=== PATIENT | male | born 1930 | race Caucasian/White ===

== ENCOUNTER 2018-07-16 13:04 | Emergency (ER) | payer OTHER ==
[2018-07-16 15:33] LABS: Absolute Lymphocytes (CBC) 2.2 K/uL (0.7-4.9); Absolute Neutrophil 5.8 K/uL (1.8-8.0); Basophils % 1.3 % (0-1.3); Eosinophils % 0.7 % (0-4.4); Hematocrit 40.8 % (39.6-49.0); Lymphocytes % 23.5 % (15.3-44.8); MPV 9.3 fL (7.6-11.3); Monocytes % 10.8 % (3.3-12.3); RBC Red Blood Cell Count 4.08 M/uL (4.33-5.43)
[2018-07-16 15:40] LABS: Protime INR 1.04
[2018-07-16 15:49] LABS: Potassium 3.5 mmol/L (3.5-5.1)
[2018-07-16] MEDS ORDERED: CEFTRIAXONE/SWI 1gm 1 GM/10 ML SYR ONE (16:38)
--- NOTE | 2018-07-16 16:43 | ER ---
Nurse's Notes [facility] Name: Ganesh Santoyo Age: 87 yrs Sex: Male : 1930 Arrival Date: 07/16/2018 Time: 13:06 Bed 25 Private MD: Yvette Plascencia C Diagnosis: Hematuria, unspecified;Urinary tract infection, site not specified Presentation: 07/16 13:28 Presenting complaint: Sent by Dr. Plascencia for blood in urine. Transition of care: patient hb was not received from another setting of care. Onset of symptoms was July 16, 2018. Risk Assessment: Do you want to hurt yourself or someone else? Patient reports no desire to harm self or others. Care prior to arrival: None. 13:28 Method Of Arrival: Ambulatory hb 13:28 Acuity: SHANIA 3 hb 13:40 Initial Sepsis Screen: Does the patient meet any 2 criteria? No. Patient's initial ca1 sepsis screen is negative. Does the patient have a suspected source of infection? No. Patient's initial sepsis screen is negative. Historical: - Allergies: 13:31 No Known Allergies; hb - PMHx: 13:31 Hyperlipidemia; Hypothyroidism; hb - PSHx: 13:31 None; hb - Immunization history:: Adult Immunizations up to date. - Social history:: Smoking status: Patient/guardian denies using tobacco. - Ebola Screening: : No symptoms or risks identified at this time. - Family history:: not pertinent. - Hospitalizations: : No recent hospitalization is reported. Screenin:50 Abuse screen: Denies threats or abuse. Denies injuries from another. ca1 14:50 Nutritional screening: No deficits noted. Tuberculosis screening: No symptoms or risk ca1 factors identified. Fall Risk IV access (20 points). Ambulatory Aid- Crutches/Cane/Walker (15 pts). Assessment: 13:40 General: Appears in no apparent distress. comfortable, Behavior is calm, cooperative, ca1 appropriate for age. Pain: Denies pain. Neuro: Level of Consciousness is awake, alert, obeys commands, Oriented to person, place, situation. Cardiovascular: Heart tones S1 S2 present Capillary refill < 3 seconds Patient's skin is warm and dry. Respiratory: Airway is patent Trachea midline Respiratory effort is even, unlabored, Respiratory pattern is regular, symmetrical, Breath sounds are clear bilaterally. GI: Abdomen is flat, non-distended, Bowel sounds present X 4 quads. Abd is soft and non tender X 4 quads. : Parent/caregiver report the patient having blood in urine, with tiny clots. EENT: No signs and/or symptoms were reported regarding the EENT system. Derm: Skin is intact, Skin is pink, warm \T\ dry. Musculoskeletal: Circulation, motion, and sensation intact. 14:30 Reassessment: Patient appears in no apparent distress at this time. Patient and/or ca1 family updated on plan of care and expected duration. Pain level reassessed. Patient is alert, oriented x 3, equal unlabored respirations, skin warm/dry/pink. 15:35 Reassessment: Dr. Valdez at bedside. ca1 15:40 Reassessment: Patient appears in no apparent distress at this time. Attempted to insert ca1 3-way Mensah to pt with Dr. Valdez at bedside. Encountered resistance, half way through the catheter. Dr. Valdez, took over and tried to push forward but says there is a restriction and pulled out the catheter. Instructed and pt to see him next week at his clinic, and says they will be discharged. 16:24 Reassessment: Scanned bladder, 134ml, Dr. Sutherland informed. ca1 16:55 Reassessment: Patient appears in no apparent distress at this time. Patient is alert, ca1 oriented x 3, equal unlabored respirations, skin warm/dry/pink. Vital Signs: 13:30 BP 154 / 92; Pulse 87; Resp 18; Temp 97.2; Pulse Ox 97% on R/A; Pain 0/10; hb 14:50 BP 151 / 85; Pulse 82; Resp 18; Pulse Ox 100% on R/A; ca1 15:40 BP 125 / 63; Pulse 83; Resp 18; Pulse Ox 100% on R/A; ca1 16:49 BP 131 / 67; Pulse 81; Resp 18; Pulse Ox 100% on R/A; ca1 ED Course: 13:06 Patient arrived in ED. ag5 13:06 Yvette Plascencia MD is Private Physician. ag5 13:30 Triage completed. hb 13:30 Arm band placed on. hb 13:40 Patient has correct armband on for positive identification. Placed in gown. Bed in low ca1 position. Call light in reach. Side rails up X2. 13:40 Pulse ox on. NIBP on. Warm blanket given. ca1 14:43 Ag Sutherland MD is Attending Physician. rn 14:43 Kusum Linares RN is Primary Nurse. ca1 15:25 Missed attempt(s): 20 gauge in right in left antecubital area. lt1 15:26 Inserted saline lock: 20 gauge in right antecubital area, using aseptic technique. lt1 15:26 Initial lab(s) drawn, by me, sent to lab. lt1 16:41 Barry Valdez MD is Referral Physician. rn 17:10 No provider procedures requiring assistance completed. IV discontinued, intact, ca1 bleeding controlled, No redness/swelling at site. Pressure dressing applied. Administered Medications: 16:25 Drug: Rocephin - (cefTRIAXone) 1 grams Route: IVPB; Infused Over: 30 mins; Site: right ca1 antecubital; 16:48 Follow up: Response: No adverse reaction; IVP per Pharmacy Protocol ca1 Intake: Outcome: 16:42 Discharge ordered by MD. rn 17:10 Discharged to home ambulatory, with significant other. ca1 17:10 Condition: stable 17:10 Discharge instructions given to patient, significant other, Instructed on discharge instructions, follow up and referral plans. medication usage, Demonstrated understanding of instructions, follow-up care, medications, Prescriptions given X 1. 17:15 Patient left the ED. ca1 Signatures: Ag Sutherland MD MD rn Baxter, Heather, RN RN Kusum Linares RN RN ca1 Mikala, Venkata ag5 Alcantara, Lea lt1 Corrections: (The following items were deleted from the chart) 16:01 14:50 General: Appears in no apparent distress. comfortable, Behavior is calm, ca1 cooperative, appropriate for age, ca1 16:01 14:50 Pain: Denies pain. ca1 ca1 16:01 14:50 Pain: ca1 ca1 16:01 14:50 Neuro: Level of Consciousness is awake, alert, obeys commands, Oriented to ca1 person, place, situation, ca1 16:01 14:50 Cardiovascular: Heart tones S1 S2 present Capillary refill < 3 seconds Patient's ca1 skin is warm and dry. ca1 16:01 14:50 Respiratory: Airway is patent Trachea midline Respiratory effort is even, ca1 unlabored, Respiratory pattern is regular, symmetrical, Breath sounds are clear bilaterally. ca1 16: 14:50 GI: Abdomen is flat, non-distended, Bowel sounds present X 4 quads. Abd is soft ca1 and non tender X 4 quads. ca1 16:01 14:50 : Parent/caregiver report the patient having blood in urine, with tiny clots. ca1 ca1 16:01 14:50 EENT: No signs and/or symptoms were reported regarding the EENT system. ca1 ca1 16:01 14:50 Derm: Skin is intact, Skin is pink, warm \T\ dry. ca1 ca1 16:01 14:50 Musculoskeletal: Circulation, motion, and sensation intact. ca1 ca1 02 01:00 02/13 17:10 Discharge instructions given to patient, significant other, Instructed on ca1 discharge instructions, follow up and referral plans. Demonstrated understanding of instructions, follow-up care, medications, ca1
--- NOTE | 2018-07-16 16:43 | EDPHYS ---
Physician Documentation [facility] Name: Ganesh Santoyo Age: 87 yrs Sex: Male : 1930 Arrival Date: 07/16/2018 Time: 13:06 Bed 25 Private MD: Yvette Plascencia C ED Physician Ag Sutherland HPI: 07/16 15:34 This 87 yrs old Male presents to ER via Ambulatory with complaints of blood rn in urine. 15:34 The patient presents with urinary symptoms, urinary frequency, hematuria. Onset: The rn symptoms/episode began/occurred 2 week(s) ago. Modifying factors: The symptoms are alleviated by nothing, the symptoms are aggravated by urinating. Severity of symptoms: At their worst the symptoms were mild, in the emergency department the symptoms are unchanged. The patient has not experienced similar symptoms in the past. Reports sent by Dr. Plascencia for evaluation, reports hematuria for 2 weeks, had ct scan that showed renal pelvis stone on right side, told to come here to see Dr. Valdez. Able to urinate and no pain.. Historical: - Allergies: 13:31 No Known Allergies; hb - PMHx: 13:31 Hyperlipidemia; Hypothyroidism; hb - PSHx: 13:31 None; hb - Immunization history:: Adult Immunizations up to date. - Social history:: Smoking status: Patient/guardian denies using tobacco. - Ebola Screening: : No symptoms or risks identified at this time. - Family history:: not pertinent. - Hospitalizations: : No recent hospitalization is reported. ROS: 15:34 Constitutional: Negative for fever, chills, and weight loss, Eyes: Negative for injury, rn pain, redness, and discharge, Cardiovascular: Negative for chest pain, palpitations, and edema, Respiratory: Negative for shortness of breath, cough, wheezing, and pleuritic chest pain, Abdomen/GI: Negative for abdominal pain, nausea, vomiting, diarrhea, and constipation, Back: Negative for injury and pain, : + hematuria MS/Extremity: Negative for injury and deformity, Skin: Negative for injury, rash, and discoloration, Neuro: Negative for headache, weakness, numbness, tingling, and seizure. Exam: 15:34 Constitutional: This is a well developed, well nourished patient who is awake, alert, rn and in no acute distress. Head/Face: Normocephalic, atraumatic. Cardiovascular: Regular rate and rhythm, No pulse deficits. Respiratory: Lungs have equal breath sounds bilaterally, clear to auscultation, No increased work of breathing, no retractions or nasal flaring. Abdomen/GI: soft, non-tender Skin: Warm, dry with normal turgor. Normal color with no rashes, no lesions, and no evidence of cellulitis. MS/ Extremity: Pulses equal, no cyanosis. Neurovascular intact. Full, normal range of motion. Equal circumference. Neuro: Awake and alert, GCS 15, oriented to person, place, time, and situation. Cranial nerves II-XII grossly intact. Motor strength 5/5 in all extremities. Sensory grossly intact. Shuffling gait. Vital Signs: 13:30 BP 154 / 92; Pulse 87; Resp 18; Temp 97.2; Pulse Ox 97% on R/A; Pain 0/10; hb 14:50 BP 151 / 85; Pulse 82; Resp 18; Pulse Ox 100% on R/A; ca1 15:40 BP 125 / 63; Pulse 83; Resp 18; Pulse Ox 100% on R/A; ca1 16:49 BP 131 / 67; Pulse 81; Resp 18; Pulse Ox 100% on R/A; ca1 MDM: 14:43 Patient medically screened. rn 15:43 Differential diagnosis: UTI, urinary retention, prostatitis, urethritis. rn 16:21 ED course: Bladder scanner shows 130s cc urine, seen by Dr Valdez, requested bladder rn irrigation but has stricture, so asked to put on abx for UTI and see him in his clinic for cysto, will dc home. . 16:41 Data reviewed: vital signs, nurses notes, lab test result(s), radiologic studies, CT rn scan, and as a result, I will discharge patient. Counseling: I had a detailed discussion with the patient and/or guardian regarding: the historical points, exam findings, and any diagnostic results supporting the discharge/admit diagnosis, lab results, radiology results, the need for outpatient follow up, to return to the emergency department if symptoms worsen or persist or if there are any questions or concerns that arise at home. Special discussion: I discussed with the patient/guardian in detail that at this point there is no indication for admission to the hospital. It is understood, however, that if the symptoms persist or worsen the patient needs to return immediately for re-evaluation. Based on the history and exam findings, there is no indication for further emergent testing or inpatient evaluation. I discussed with the patient/guardian the need to see the urologist for further evaluation of the symptoms. 07/16 14:58 Order name: CBC with Diff; Complete Time: 16:12 rn 07/16 14:58 Order name: Basic Metabolic Panel; Complete Time: 16:12 rn 07/16 14:58 Order name: Protime (+inr); Complete Time: 16:12 rn 07/16 14:58 Order name: Ptt, Activated; Complete Time: 16:12 rn 07/16 14:58 Order name: IV Start; Complete Time: 15:27 rn 07/16 16:12 Order name: Bladder Scanner; Complete Time: 16:24 rn Administered Medications: 16:25 Drug: Rocephin - (cefTRIAXone) 1 grams Route: IVPB; Infused Over: 30 mins; Site: right ca1 antecubital; 16:48 Follow up: Response: No adverse reaction; IVP per Pharmacy Protocol ca1 Disposition: 07/16/18 16:42 Discharged to Home. Impression: Hematuria, unspecified, Urinary tract infection, site not specified. - Condition is Stable. - Discharge Instructions: Hematuria, Adult, Urinary Tract Infection, Adult. - Prescriptions for cefpodoxime 100 mg Oral Tablet - take 2 tablet by ORAL route every 12 hours for 10 days take with food; 40 tablet. - Medication Reconciliation Form, Thank You Letter, Antibiotic Education, Prescription Opioid Use form. - Follow up: Barry Valdez MD; When: As needed; Reason: Recheck today's complaints, Re-evaluation by your physician. - Problem is new. - Symptoms have improved. Signatures: Dispatcher [employer] EDMS Liane Duckworth, HAND SANDER-C HAND SANDER-Csnw Ag Sutherland MD MD rn Baxter, Heather, RN RN uKsum Linares RN RN ca1 Corrections: (The following items were deleted from the chart) 17:15 16:42 07/16/2018 16:42 Discharged to Home. Impression: Hematuria, unspecified; Urinary ca1 tract infection, site not specified. Condition is Stable. Forms are Medication Reconciliation Form, Thank You Letter, Antibiotic Education, Prescription Opioid Use. Follow up: Barry Valdez; When: As needed; Reason: Recheck today's complaints, Re-evaluation by your physician. Problem is new. Symptoms have improved. rn
== END 2018-07-16 17:15 | disposition home or self-care (01) ==
LOC: ER 13:04
DX: N39.0 Urinary tract infection, site not specified (principal); R31.9 Hematuria, unspecified
CPT/HCPCS: 36415; 80048; 85025; 85610; 85730; 96374; 99284; J0696

== ENCOUNTER 2018-07-28 11:40 | Day surgery (SDC) | payer OTHER ==
--- NOTE | 2018-07-25 09:23 | RAD REPORT ---
EXAM DESCRIPTION: RAD - Chest Pa And Lat (2 Views) - 07/25/2018 9:06 am CLINICAL HISTORY: Preop chest, pending kidney stone treatment COMPARISON: July 2017 TECHNIQUE: PA and lateral views of the chest were obtained. FINDINGS: The lungs are fibrotic as a baseline. The interstitial pattern is similar to the compariso n study. No failure, infiltrate or mass identified. Heart size is normal and central vasculature is within normal limits. No pleural effusion or pneu mothorax seen. No acute bony finding noted. No aortic abnormality. 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 No acute finding.
[2018-07-25 10:21] LABS: Urine Appearance TURBID; Urine Bilirubin NEGATIVE (NEG); Urine Blood 3+ (NEG); Urine Color RED; Urine Glucose NEGATIVE (NEG); Urine Protein TRACE (NEG); Urine Urobilinogen 0.2 mg/dL (0.2-1.0); Urine pH 6.5 (5.0-7.0)
[2018-07-25 10:22] LABS: Absolute Lymphocytes (CBC) 1.7 K/uL (0.7-4.9); Absolute Monocytes 0.6 K/uL (0.1-1.3); Absolute Neutrophil 4.7 K/uL (1.8-8.0); Basophils % 0.5 % (0-1.3); Eosinophils % 0.2 % (0-4.4); Hematocrit 39.5 % (39.6-49.0); Lymphocytes % 24.6 % (15.3-44.8); Monocytes % 8.6 % (3.3-12.3); RBC Red Blood Cell Count 3.98 M/uL (4.33-5.43)
[2018-07-25 10:22] LABS: Urine Microscopic Reflex ORDER UMIC
[2018-07-25 10:34] LABS: Protime INR 1.01
[2018-07-25 10:42] LABS: Potassium 3.9 mmol/L (3.5-5.1)
[2018-07-25 12:29] LABS: Urine Amorphous Sediment 1+ /HPF (NONE SEEN); Urine Bacteria <20 /HPF (NONE SEEN); Urine Culture Reflex Order NOT NEEDED; Urine RBC >50 /HPF (NONE SEEN)
--- NOTE | 2018-07-25 13:53 | EKG ---
Test Date: 2018-07-25 Test Time: 08:58:57 Planer Chain Offbearer: BERTA MEASUREMENT RESULTS: Intervals: Rate: 70 ND: 186 QRSD: 72 QT: 396 QTc: 427 Bock: P: 48 ND: 186 QRS: 11 T: 31 INTERPRETIVE STATEMENTS: Sinus rhythm with marked sinus arrhythmia Otherwise normal ECG Compared to ECG 07/18/2016 13:13:26 No significant changes Electronically Signed On 07-25-18 13:52:17 YARD CLEANER by John Kang
[2018-07-28] MEDS ORDERED: Ringers Lactate 1,000 ML IV ONE (12:24)
[2018-07-28] MEDS ORDERED: HYDROCORTISONE SUC 100 MG INJ ONE (12:24)
[2018-07-28] MEDS ORDERED: GENTAMICIN 80 MG/100 ML BAG 80 MG/100 ML BAG IV ONE (12:25)
[2018-07-28] MEDS ORDERED: METHYLPREDNISOLONE 125 MG INJ ONE (12:32)
[2018-07-28] MEDS ORDERED: FENTANYL CITR 100 MCG/2 ML ONE (12:34)
[2018-07-28] MEDS ORDERED: ETOMIDATE 20 MG/10 ML VIAL IV ONE (12:34)
[2018-07-28] MEDS ORDERED: GLYCOPYRROLATE 0.2 MG/ML SYR ONE (13:11)
== END 2018-07-28 15:47 | disposition home or self-care (01) ==
LOC: OR 11:40
PROVIDERS: ATTEND Urology
PROC: 0TBB8ZX Excision of Bladder, Via Natural or Artificial Opening Endoscopic, Diagnostic (ICD-10-PCS; 2018-07-28)
PROC: 0T7D8ZZ Dilation of Urethra, Via Natural or Artificial Opening Endoscopic (ICD-10-PCS; principal; 2018-07-28 13:00)
DX: N35.919 Unspecified urethral stricture, male, unspecified site (principal); D49.4 Neoplasm of unspecified behavior of bladder; I10 Essential (primary) hypertension; E03.9 Hypothyroidism, unspecified; E78.00 Pure hypercholesterolemia, unspecified; G20 Parkinson's disease; Z85.46 Personal history of malignant neoplasm of prostate
CPT/HCPCS: 93005; 87088; 85025; 80048; 36415; 85610; 88305; 85730; 71046; 52276; 52234; G0103; J3010; J1580; J2930; 81003; 81015; 87086; J1720

== ENCOUNTER 2019-02-28 18:03 | Emergency (ER) | payer OTHER ==
[2019-02-28] MEDS ORDERED: LIDOCAINE VISCOUS 2% SOLN 15 ML UDC ONE (18:51)
--- NOTE | 2019-02-28 19:56 | ER ---
Nurse's Notes [facility] Name: Ganesh Santoyo Age: 88 yrs Sex: Male : 1930 Arrival Date: 02/28/2019 Time: 18:06 Bed 2 Private MD: Yvette Plascencia C Diagnosis: Other mechanical complication of other indwelling urethral catheter;Urinary tract infection, site not specified Presentation: 02/28 18:17 Presenting complaint:. Presenting complaint: Presenting complaint: states: "His aa5 home health nurse could not irrigate the atkinson today and it's not draining so they said to come here". Pt sees Dr. Valdez and was diagnosed with a UTI for approximately 3 weeks. Pt denies pain. Transition of care: patient was not received from another setting of care. Onset of symptoms was February 28, 2019. Risk Assessment: Do you want to hurt yourself or someone else? Patient reports no desire to harm self or others. Care prior to arrival: None. 18:17 Acuity: SHANIA 3 aa5 18:17 Method Of Arrival: Wheelchair aa5 19:15 Initial Sepsis Screen: Does the patient meet any 2 criteria? No. Patient's initial lp1 sepsis screen is negative. Does the patient have a suspected source of infection? No. Patient's initial sepsis screen is negative. Historical: - Allergies: 18:20 No Known Allergies; aa5 - PMHx: 18:19 Hyperlipidemia; Hypothyroidism; aa5 18:21 Hypotension; aa5 - PSHx: 18:20 None; aa5 - Immunization history:: Flu vaccine is not up to date. - Social history:: Smoking status: Patient/guardian denies using tobacco. - Ebola Screening: : No symptoms or risks identified at this time. Screenin:40 Abuse screen: Denies threats or abuse. Denies injuries from another. Nutritional jl7 screening: No deficits noted. Tuberculosis screening: No symptoms or risk factors identified. Fall Risk None identified. Total Hale Fall Scale indicates No Risk (0-24 pts). Assessment: 18:40 General: Appears in no apparent distress. uncomfortable, Behavior is calm, cooperative, jl7 appropriate for age. Pain: Denies pain. Neuro: Level of Consciousness is awake, alert, obeys commands, Oriented to person, place, time, situation. Cardiovascular: Patient's skin is warm and dry. Respiratory: Airway is patent Respiratory effort is even, unlabored, Respiratory pattern is regular, symmetrical. GI: No signs and/or symptoms were reported involving the gastrointestinal system. : Atkinson in place to gravity drainage Urine is cloudy, pt's reports no output for 2 hours. EENT: No signs and/or symptoms were reported regarding the EENT system. Derm: Skin is pink, warm \\T\\ dry. 19:13 General: Appears in no apparent distress. Behavior is calm, cooperative. Pain: Denies lp1 pain. Neuro: Level of Consciousness is awake, alert, obeys commands, Oriented to person, place, situation. Cardiovascular: Patient's skin is warm and dry. Respiratory: Respiratory effort is even, unlabored. : Atkinson in place to gravity drainage New atkinson inserted by KAPIL Flower; atkinson draining. Derm: Skin is intact, is thin, Skin is dry, Skin is normal. Musculoskeletal: No deficits noted. 19:40 Reassessment: Patient's brief changed. lp1 19:45 Reassessment: Patient and state preference to not change atkinson catheter to leg bag.lp1 Vital Signs: 18:20 BP 97 / 69; Pulse 97; Resp 18 S; Temp 97.5(O); Pulse Ox 98% on R/A; aa5 19:50 BP 152 / 87; Pulse 85; Resp 18; Pulse Ox 97% on R/A; lp1 19:50 Patient's states "I gave him his Midodrine medication since it was time" lp1 ED Course: 18:06 Patient arrived in ED. mr 18:06 Yvette Plascencia MD is Private Physician. mr 18:17 Arm band placed on. aa5 18:19 Triage completed. aa5 18:34 Donn Morrison PA is PHCP. jmm 18:35 Jose L Barber MD is Attending Physician. jmm 18:40 Patient has correct armband on for positive identification. Placed in gown. Bed in low jl7 position. Call light in reach. Side rails up X 1. 18:50 Bladder scan completed. 187 ml. jl7 18:55 Atkinson cath removed intact, balloon deflated. jl7 19:09 Shirley Simpson RN is Primary Nurse. lp1 19:10 Atkinson cath inserted, using sterile technique, 18 Fr., by co, balloon inflated, to jl7 gravity drainage, urine specimen collected. returned cloudy urine. Patient tolerated well. 19:53 Barry Valdez MD is Referral Physician. [facility] 20:00 No provider procedures requiring assistance completed. Patient did not have IV access lp1 during this emergency room visit. Administered Medications: 18:55 Drug: Viscous Lidocaine Liquid (4 %) 5 ml Route: Mucous Membrane; jl7 19:12 Follow up: Response: No adverse reaction jl7 Output: 19:45 Urine: 200ml (Atkinson); Total: 200ml. lp1 Outcome: 19:55 Discharge ordered by MD. [facility] 19:55 Discharged to home via wheelchair, with significant other. lp1 19:55 Condition: good 19:55 Discharge instructions given to patient, significant other, Instructed on discharge instructions, follow up and referral plans. Demonstrated understanding of instructions, follow-up care. 20:00 Patient left the ED. lp1 Signatures: Donn Morrison PA PA [facility] PriceArlyn mr KramerMarzena, RN RN aa5 Shirley Simpson, RN RN lp1 Mundo Quinones, KAPIL RN jl7 Corrections: (The following items were deleted from the chart) 18:27 18:17 Presenting complaint: states: "His home health nurse could not irrigate the aa5 atkinson today and it's not draining so they said to come here". Pt sees Dr. Valdez and was diagnosed with a UTI for approximately 3 weeks. Presenting complaint: states: "His home health nurse could not irrigate the atkinson today and it's not draining so they said to come here". Pt sees Dr. Valdez and was diagnosed with a UTI for approximately 3 weeks. aa5 20:13 20:13 Patient left the ED. lp1 lp1
--- NOTE | 2019-02-28 19:56 | EDPHYS ---
Physician Documentation [facility] Name: Ganesh Snatoyo Age: 88 yrs Sex: Male : 1930 Arrival Date: 02/28/2019 Time: 18:06 Bed 2 Private MD: Yvette Plascencia C ED Physician Jose L Barber HPI: 02/28 18:35 This 88 yrs old Male presents to ER via Wheelchair with complaints of Urinary jmm Problem. 18:35 The patient presents with urinary symptoms. Onset: The symptoms/episode began/occurred jmm acutely, today. Associated signs and symptoms: Pertinent negatives: abdominal pain, fever. Patient states his atkinson has been unable to drain today. states that the catheter has been clogged with sediment. Unable to flush atkinson today. . Patient is currently on abx for UTI. Historical: - Allergies: 18:20 No Known Allergies; aa5 - PMHx: 18:19 Hyperlipidemia; Hypothyroidism; aa5 18:21 Hypotension; aa5 - PSHx: 18:20 None; aa5 - Immunization history:: Flu vaccine is not up to date. - Social history:: Smoking status: Patient/guardian denies using tobacco. - Ebola Screening: : No symptoms or risks identified at this time. ROS: 18:35 Constitutional: Negative for fever, chills, and weight loss, Cardiovascular: Negative jmm for chest pain, palpitations, and edema, Respiratory: Negative for shortness of breath, cough, wheezing, and pleuritic chest pain, Abdomen/GI: Negative for abdominal pain, nausea, vomiting, diarrhea, and constipation. 18:35 : Positive for urinary symptoms. 18:35 All other systems are negative. Exam: 18:35 Constitutional: This is a well developed, well nourished patient who is awake, alert, jmm and in no acute distress. Head/Face: atraumatic. Eyes: EOMI, no conjunctival erythema appreciated ENT: Moist Mucus Membranes Neck: Trachea midline, Supple Chest/axilla: Normal chest wall appearance and motion. Cardiovascular: Regular rate and rhythm. No edema appreciated Respiratory: Normal respirations, no respiratory distress appreciated Abdomen/GI: Non distended, soft 18:35 MS/ Extremity: Moves all extremities, no obvious deformities appreciated, no edema noted to the lower extremities Neuro: Awake and alert, normal gait Psych: Behavior is normal, Mood is normal, Patient is cooperative and pleasant 18:35 : a atkinson is noted. Vital Signs: 18:20 BP 97 / 69; Pulse 97; Resp 18 S; Temp 97.5(O); Pulse Ox 98% on R/A; aa5 19:50 BP 152 / 87; Pulse 85; Resp 18; Pulse Ox 97% on R/A; lp1 19:50 Patient's states "I gave him his Midodrine medication since it was time" lp1 MDM: 18:35 [facility] screened[facility] 19:52 Data reviewed: vital signs, nurses notes. Counseling: I had a detailed discussion with [facility] the patient and/or guardian regarding: the historical points, exam findings, and any diagnostic results supporting the discharge/admit diagnosis, the need for outpatient follow up, to return to the emergency department if symptoms worsen or persist or if there are any questions or concerns that arise at home. ED course: Atkinson Catheter replaced. Increased drainage is noted. Urine sent for culture. Family given strict return precautions and otherwise advised to follow up with Dr. Valdez. Patient and family understood and agrees with the plan of care. . 02/28 19:25 Order name: Urine Culture [facility] 02/28 19:40 Order name: Urine Dipstick--Ancillary (enter results) [facility] 02/28 19:10 Order name: Atkinson Leg Bag; Complete Time: 19:11 [facility] 02/28 19:11 Order name: Bladder Scanner; Complete Time: 19:11 [facility] 02/28 19:25 Order name: Misc. Order: Diaper change; Complete Time: 20:13 [facility] Administered Medications: 18:55 Drug: Viscous Lidocaine Liquid (4 %) 5 ml Route: Mucous Membrane; [facility] 19:12 Follow up: Response: No adverse reaction [facility] Disposition: 02/28/19 19:55 Discharged to Home. Impression: Other mechanical complication of other indwelling urethral catheter, Urinary tract infection, site not specified. - Condition is Stable. - Discharge Instructions: Atkinson Catheter Care, Adult, Urinary Tract Infection, Adult. - Medication Reconciliation Form, Thank You Letter, Antibiotic Education, Prescription Opioid Use form. - Follow up: Barry Valdez MD; When: 2 - 3 days; Reason: Recheck today's complaints, Continuance of care, Re-evaluation by your physician. Addendum: 03/02/2019 08:37 Co-signature as Attending Physician, Jose L Barber MD I agree with the assessment and c marie plan of care. Signatures: Dispatcher [employer] EDJose L Baxter MD MD cha Mickail, Joel, PA PA [facility] Marzena Kramer, RN RN aa5 Shirley Simpson RN RN lp1 Mundo Quinones RN RN jl7 Corrections: (The following items were deleted from the chart) 02/28 19:56 19:55 02/28/2019 19:55 Discharged to Home. Impression: Other mechanical complication of jmm other indwelling urethral catheter. Condition is Stable. Forms are Medication Reconciliation Form, Thank You Letter, Antibiotic Education, Prescription Opioid Use. Follow up: Barry Valdez; When: 2 - 3 days; Reason: Recheck today's complaints, Continuance of care, Re-evaluation by your physician. [facility] 20:13 19:56 02/28/2019 19:55 Discharged to Home. Impression: Other mechanical complication of lp1 other indwelling urethral catheter; Urinary tract infection, site not specified. Condition is Stable. Discharge Instructions: Atkinson Catheter Care, Adult. Forms are Medication Reconciliation Form, Thank You Letter, Antibiotic Education, Prescription Opioid Use. Follow up: Barry Valdez; When: 2 - 3 days; Reason: Recheck today's complaints, Continuance of care, Re-evaluation by your physician. [facility]
[2019-02-28 20:14] LABS: Urine Blood TRACE (NEG); Urine Glucose NEGATIVE (NEG); Urine Protein 1+ (NEG)
[2019-02-28 20:18] VITALS: TEMP 97.5
[2019-02-28 20:19] VITALS: BP 152/87; O2SAT 97
== END 2019-02-28 20:13 | disposition home or self-care (01) ==
LOC: ER 18:03
DX: N39.0 Urinary tract infection, site not specified (principal)
CPT/HCPCS: 51702; 81003; 87077; 87086; 87088; 87186; 99284

== ENCOUNTER 2019-08-28 13:26 | Emergency (ER) | payer OTHER ==
--- NOTE | 2019-08-28 14:18 | EDPHYS ---
Physician Documentation [facility] Name: Ganesh Santoyo Age: 88 yrs Sex: Male : 1930 Arrival Date: 08/28/2019 Time: 13:30 Bed 23 Private MD: Yvette Plascencia C ED Physician Josemanuel Pillai HPI: 08/27 15:49 This 88 yrs old Male presents to ER via Ambulatory with complaints of Urinary kdr Problem. 15:49 The patient presents with Purulent drainage in urine. Onset: The symptoms/episode kdr began/occurred 2 day(s) ago. Modifying factors: The symptoms are alleviated by. Associated signs and symptoms: The patient has no apparent associated signs or symptoms. Severity of symptoms: At their worst the symptoms were very mild, in the emergency department the symptoms are unchanged. The patient has not experienced similar symptoms in the past. The patient has not recently seen a physician. Historical: - Allergies: 13:45 No Known Allergies; iw - Home Meds: 13:45 midodrine oral oral 3 times per day [Active]; levothyroxine oral [Active]; uknown iw cholesterol med [Active]; potassium supplement [Active]; Probiotic oral oral [Active]; Claritin Oral [Active]; - PMHx: 13:45 Hyperlipidemia; hypotension; Hypothyroidism; Parkinsons; iw - Immunization history:: Adult Immunizations up to date. - Social history:: Smoking status: Patient denies any tobacco usage or history of. ROS: 15:49 Constitutional: Negative for fever, chills, and weight loss, Eyes: Negative for injury, kdr pain, redness, and discharge, ENT: Negative for injury, pain, and discharge, Neck: Negative for injury, pain, and swelling, Cardiovascular: Negative for chest pain, palpitations, and edema, Respiratory: Negative for shortness of breath, cough, wheezing, and pleuritic chest pain, Abdomen/GI: Negative for abdominal pain, nausea, vomiting, diarrhea, and constipation, Back: Negative for injury and pain, MS/Extremity: Negative for injury and deformity, Skin: Negative for injury, rash, and discoloration, Neuro: Negative for headache, weakness, numbness, tingling, and seizure activity. Psych: Negative for depression, anxiety, suicide ideation, homicidal ideation, and hallucinations, Allergy/Immunology: Negative for hives, rash, and allergies, Endocrine: Negative for neck swelling, polydipsia, polyuria, polyphagia, and marked weight changes, Hematologic/Lymphatic: Negative for swollen nodes, abnormal bleeding, and unusual bruising. 15:49 : Positive for urinary symptoms, penile discharge. Exam: 15:49 Constitutional: This is a well developed, well nourished patient who is awake, alert, kdr and in no acute distress. Head/Face: Normocephalic, atraumatic. Chest/axilla: Normal chest wall appearance and motion. Nontender with no deformity. No lesions are appreciated. Cardiovascular: Regular rate and rhythm with a normal S1 and S2. No gallops, murmurs, or rubs. Normal PMI, no JVD. No pulse deficits. Respiratory: Lungs have equal breath sounds bilaterally, clear to auscultation and percussion. No rales, rhonchi or wheezes noted. No increased work of breathing, no retractions or nasal flaring. Abdomen/GI: Soft, non-tender, with normal bowel sounds. No distension or tympany. No guarding or rebound. No evidence of tenderness throughout. Back: No spinal tenderness. No costovertebral tenderness. Full range of motion. Skin: Warm, dry with normal turgor. Normal color with no rashes, no lesions, and no evidence of cellulitis. Neuro: Awake and alert, GCS 15, oriented to person, place, time, and situation. Cranial nerves II-XII grossly intact. Motor strength 5/5 in all extremities. Sensory grossly intact. Cerebellar exam normal. Normal gait. Psych: Awake, alert, with orientation to person, place and time. Behavior, mood, and affect are within normal limits. Vital Signs: 13:39 BP 110 / 70; Pulse 84; Resp 16; Temp 98.4; Pulse Ox 100% on R/A; Weight 70.31 kg; iw Height 5 ft. 9 in. (175.26 cm); Pain 0/10; 13:39 Body Mass Index 22.89 (70.31 kg, 175.26 cm) iw MDM: 14:17 Patient medically screened. kdr 15:49 Data reviewed: vital signs, nurses notes, lab test result(s), radiologic studies. kdr Counseling: I had a detailed discussion with the patient and/or guardian regarding: the historical points, exam findings, and any diagnostic results supporting the discharge/admit diagnosis, lab results, radiology results, the need for outpatient follow up. 08/27 14:14 Order name: Urine Culture [facility] 08/27 13:39 Order name: Urine Dipstick-Ancillary (obtain specimen); Complete Time: 14:14 kdr 08/27 14:22 Order name: Urine Dipstick--Ancillary (enter results) eb Administered Medications: 14:29 Drug: Bactrim (160 mg-800 mg (DS) 1 tablet Route: PO; vc Disposition: 08/28/19 14:17 Discharged to Home. Impression: Urinary tract infection, site not specified. - Condition is Stable. - Discharge Instructions: Urinary Tract Infection, Adult, [id number]. - Prescriptions for Bactrim DS 800- 160 mg Oral Tablet - take 1 tablet by ORAL route every 12 hours for 7 days; 14 tablet. - Medication Reconciliation Form, Thank You Letter, Antibiotic Education form. - Follow up: Yvette Plascencia MD; When: 1 - 2 days; Reason: If symptoms return, Further diagnostic work-up, Recheck today's complaints, Continuance of care, Re-evaluation by your physician. - Problem is new. - Symptoms are unchanged. Signatures: Dispatcher [employer] EDMS Josemanuel Pillai MD MD kdr Tamiko Smart RN RN Cuca Stinson RN RN ss Stephanie Rodriguez RN RN vc Corrections: (The following items were deleted from the chart) 14:36 14:17 08/28/2019 14:17 Discharged to Home. Impression: Urinary tract infection, site ss not specified. Condition is Stable. Forms are Medication Reconciliation Form, Thank You Letter, Antibiotic Education, Prescription Opioid Use. Follow up: Yvette Plascencia; When: 1 - 2 days; Reason: If symptoms return, Further diagnostic work-up, Recheck today's complaints, Continuance of care, Re-evaluation by your physician. Problem is new. Symptoms are unchanged. kdr
--- NOTE | 2019-08-28 14:18 | ER ---
Nurse's Notes [facility] Name: Ganesh Santoyo Age: 88 yrs Sex: Male : 1930 Arrival Date: 08/28/2019 Time: 13:30 Bed 23 Private MD: Yvette Plascencia C Diagnosis: Urinary tract infection, site not specified Presentation: 08/27 13:39 Chief complaint: Patient states: last night he had a brown yellow stain in his brief, iw this morning his pad was saturated and had pus in his urine, denies pain , has hx of Parkinson's, is worried about UTI, no fever at home. Coronavirus screen: Patient denies fever greater than 100.4F, cough, shortness of breath, or difficulty breathing. Proceed with normal triage process. Ebola Screen: Patient negative for fever greater than or equal to 101.5 degrees Fahrenheit, and additional compatible Ebola Virus Disease symptoms Patient denies exposure to infectious person. Patient denies travel to an Ebola-affected area in the 21 days before illness onset. No symptoms or risks identified at this time. Initial Sepsis Screen: Does the patient meet any 2 criteria? No. Patient's initial sepsis screen is negative. Does the patient have a suspected source of infection?. Risk Assessment: Do you want to hurt yourself or someone else? Patient reports no desire to harm self or others. 13:39 Method Of Arrival: Ambulatory iw 13:39 Acuity: SHANIA 4 iw 13:39 Acuity: SHANIA 3 iw Triage Assessment: 14:00 General: Appears in no apparent distress. comfortable, Behavior is calm, cooperative, vc appropriate for age. Pain: Denies pain. Historical: - Allergies: 13:45 No Known Allergies; iw - Home Meds: 13:45 midodrine oral oral 3 times per day [Active]; levothyroxine oral [Active]; uknown iw cholesterol med [Active]; potassium supplement [Active]; Probiotic oral oral [Active]; Claritin Oral [Active]; - PMHx: 13:45 Hyperlipidemia; hypotension; Hypothyroidism; Parkinsons; iw - Immunization history:: Adult Immunizations up to date. - Social history:: Smoking status: Patient denies any tobacco usage or history of. Screenin:00 Abuse screen: Denies threats or abuse. Nutritional screening: No deficits noted. vc Tuberculosis screening: No symptoms or risk factors identified. Fall Risk None identified. Assessment: 14:00 General: Appears in no apparent distress. comfortable, Behavior is calm, cooperative, vc appropriate for age. Pain: Denies pain. Neuro: Level of Consciousness is awake, alert, obeys commands, Oriented to person, place. Cardiovascular: Patient's skin is warm and dry. Respiratory: Respiratory effort is even, unlabored, Respiratory pattern is regular, symmetrical. GI: No signs and/or symptoms were reported involving the gastrointestinal system. : Urine is cloudy. EENT: No signs and/or symptoms were reported regarding the EENT system. Derm: No signs and/or symptoms reported regarding the dermatologic system. Musculoskeletal:. Vital Signs: 13:39 BP 110 / 70; Pulse 84; Resp 16; Temp 98.4; Pulse Ox 100% on R/A; Weight 70.31 kg; iw Height 5 ft. 9 in. (175.26 cm); Pain 0/10; 13:39 Body Mass Index 22.89 (70.31 kg, 175.26 cm) iw ED Course: 13:30 Patient arrived in ED. mr 13:30 Yvette Plascencia MD is Private Physician. mr 13:37 Josemanuel Pillai MD is Attending Physician. kdr 13:42 Triage completed. iw 13:45 Arm band placed on. iw 13:57 Stephanie Rodriguez, KAPIL is Primary Nurse. vc 14:14 Yvette Plascencia MD is Referral Physician. kdr 14:35 No provider procedures requiring assistance completed. Patient did not have IV access ss during this emergency room visit. Administered Medications: 14:29 Drug: Bactrim (160 mg-800 mg (DS) 1 tablet Route: PO; vc Outcome: 14:17 Discharge ordered by . kdr 14:35 Discharged to home ambulatory, with family. ss 14:35 Condition: good 14:35 Discharge instructions given to patient, family, Instructed on discharge instructions, follow up and referral plans. medication usage, Demonstrated understanding of instructions, follow-up care, medications, Prescriptions given X 1. 14:36 Patient left the ED. ss 14:36 Discharged to home ambulatory, with significant other. vc 14:36 Condition: good 14:36 Discharge instructions given to patient, significant other, Instructed on discharge instructions, follow up and referral plans. medication usage. Addendum: 08/31/2019 18:31 Addendum: Culture Results: Positive urine culture. Bacteria is resistant to, has i w intermediate sensitivity, or is not tested against prescribed antibiotics. Report given to MALOU for further evaluation and then to brewery representative for follow up with patient. Phone call Attempt #1 called twice, left voice mail X 2. Signatures: Josemanuel Pillai MD MD kdr Rivera, Mary mr Tamiko Smart RN RN iw Cuca Stinson RN RN ss Calcote, Vanessa, RN RN vc
[2019-08-28] MEDS ORDERED: SMZ./TMP. 800/160 MG TABLET ONE (14:25)
[2019-08-28 14:37] LABS: Urine Blood TRACE (NEG); Urine Glucose NEGATIVE (NEG); Urine Protein NEGATIVE (NEG); Urine Specific Gravity 1.025 (1.005-1.030)
[2019-08-28 14:48] VITALS: BP 110/70; TEMP 98.4; O2SAT 100
== END 2019-08-28 14:36 | disposition home or self-care (01) ==
LOC: ER 13:26
DX: N39.0 Urinary tract infection, site not specified (principal); E03.9 Hypothyroidism, unspecified; E78.5 Hyperlipidemia, unspecified; I95.9 Hypotension, unspecified; G20 Parkinson's disease
CPT/HCPCS: 81003; 87077; 87086; 87088; 87186; 99283